=== PATIENT | female | born 1990 | race Caucasian/White ===

== ENCOUNTER 2021-09-27 08:22 | Emergency (ER) | payer OTHER ==
[2021-09-27 09:24] LABS: Urine Blood Negative (Negative); Urine Glucose Negative (Negative); Urine Protein Negative (Negative)
[2021-09-27 09:43] LABS: Absolute Lymphocytes (CBC) 1.3 K/uL (0.7-4.9); Hematocrit 39.1 % (36.0-45.0); Lymphocytes % 18.2 % (15.3-44.8); MCV 65.3 fL (80-100); MPV 9.7 fL (7.6-11.3); RBC Red Blood Cell Count 5.98 M/uL (3.86-4.86)
[2021-09-27 10:18] LABS: Anisocytosis SLIGHT; Blood Morphology Comment NOTED (NOT SEEN); Platelet Estimate ADEQ; White Blood Cell Scan OK (OK)
--- NOTE | 2021-09-27 10:43 | ER ---
Nurse's Notes [facility] Name: Chely Glass Age: 31 yrs Sex: Female : 1990 Arrival Date: 09/27/2021 Time: 08:23 Bed 4 Private MD: Cordell Rosen Diagnosis: Near Syncope;Orthostatic hypotension Presentation: 09/27 08:40 Chief complaint: Patient states: woke up this morning and felt like she was going to iw faint, felt nauseous and shaky. Coronavirus screen: At this time, the client does not indicate any symptoms associated with coronavirus-19. Ebola Screen: Patient negative for fever greater than or equal to 101.5 degrees Fahrenheit, and additional compatible Ebola Virus Disease symptoms Patient denies exposure to infectious person. Patient denies travel to an Ebola-affected area in the 21 days before illness onset. No symptoms or risks identified at this time. Initial Sepsis Screen: Does the patient meet any 2 criteria? No. Patient's initial sepsis screen is negative. Does the patient have a suspected source of infection? No. Patient's initial sepsis screen is negative. Risk Assessment: Do you want to hurt yourself or someone else? Patient reports no desire to harm self or others. Onset of symptoms was September 27, 2021. 08:40 Method Of Arrival: Ambulatory iw 08:40 Acuity: TED 3 iw Triage Assessment: 08:46 General: Appears in no apparent distress. comfortable, Behavior is cooperative, bp appropriate for age, anxious. Pain: Denies pain. EENT: No deficits noted. Neuro: Reports NEAR SYNCOPE. Cardiovascular: No deficits noted. Respiratory: No deficits noted. GI: No signs and/or symptoms were reported involving the gastrointestinal system. : No signs and/or symptoms were reported regarding the genitourinary system. Derm: No deficits noted. Musculoskeletal: No deficits noted. Historical: - Allergies: 11:13 No Known Allergies; bp - Home Meds: 08:41 None [Active]; iw - PMHx: 08:41 None; iw - Immunization history:: Adult Immunizations up to date. - Social history:: Smoking status: Patient denies any tobacco usage or history of. - Family history:: not pertinent. - Hospitalizations: : No recent hospitalization is reported. Screenin:48 Abuse screen: Denies threats or abuse. Denies injuries from another. Nutritional bp screening: No deficits noted. Tuberculosis screening: No symptoms or risk factors identified. Fall Risk None identified. Assessment: 08:48 General: SEE TRIAGE NOTE. bp 10:32 Reassessment: No changes from previously documented assessment. Patient and/or family bp updated on plan of care and expected duration. Pain level reassessed. 11:13 Reassessment: DC ON HOLD FOR IVF COMPLETION. bp 11:49 Reassessment: PT DC HOME AMBULATORY, DX WITH ORTHOSTATIC HYPOTENSION. bp Vital Signs: 08:46 BP 110 / 70; Pulse 74; Resp 16; Temp 98.7; Pulse Ox 100% ; bp 09:00 BP 115 / 68 Supine; Pulse 84; Resp 16; Pulse Ox 100% ; bp 09:05 BP 101 / 61; Pulse 85; Resp 16; Pulse Ox 100% ; bp 10:30 BP 98 / 55; Pulse 65; Resp 16; Pulse Ox 100% ; bp 11:49 BP 98 / 60; Pulse 77; Resp 16; Pulse Ox 100% ; bp ED Course: 08:23 Patient arrived in ED. am2 08:23 Cordell Rosen MD is Private Physician. am2 08:34 Marisel Valdez, RN is Primary Nurse. jg9 08:35 Alexis Villaseñor MD is Attending Physician. rn 08:41 Triage completed. iw 08:44 Sagar Madrigal, RN is Primary Nurse. bp 08:46 Arm band placed on. bp 08:48 Patient has correct armband on for positive identification. Bed in low position. Call bp light in reach. Side rails up X2. 09:15 Inserted saline lock: 20 gauge in left antecubital area, using aseptic technique. Blood bp collected. 11:49 No provider procedures requiring assistance completed. IV discontinued, intact, bp bleeding controlled, No redness/swelling at site. Pressure dressing applied. Administered Medications: 10:50 Drug: NS 0.9% 1000 ml Route: IV; Rate: 1000 ml; Site: left antecubital; bp 11:50 Follow up: IV Status: Completed infusion; IV Intake: 1000ml bp Medication: 08:48 VIS not applicable for this client. bp Intake: 11:50 IV: 1000ml; Total: 1000ml. bp Outcome: 10:42 Discharge ordered by . rn 11:49 Discharged to home ambulatory. bp 11:49 Condition: stable 11:49 Discharge instructions given to patient, Instructed on discharge instructions, follow up and referral plans. Demonstrated understanding of instructions, follow-up care. 11:50 Patient left the ED. bp Signatures: Danya Nunez RN JARON iw Alexis Villaseñor MD MD rn Moreno, Amanda am2 Peltier, Brian, RN RN bp aMrisel Valdez RN RN jg9
--- NOTE | 2021-09-27 10:44 | EDPHYS ---
Physician Documentation [facility] Name: Chely Glass Age: 31 yrs Sex: Female : 1990 Arrival Date: 09/27/2021 Time: 08:23 Bed 4 Private MD: Cordell Rosen ED Physician Alexis Villasñeor HPI: 09/27 09:42 This 31 yrs old Female presents to ER via Ambulatory with complaints of Near Syncope, rn Doesn't Feel Right. 09:42 The patient has experienced near-syncope. Onset: The symptoms/episode began/occurred rn this morning. Duration: This was a single episode. Associated injury: The patient did not suffer any apparent associated injury. Associated signs and symptoms: Pertinent positives: lightheadedness, Pertinent negatives: abdominal pain, chest pain, confusion, headache, not seizure, shortness of breath, weakness. Current symptoms: Currently, the patient is not experiencing any symptoms. The patient has experienced similar episodes in the past. The patient has not recently seen a physician. Pt reports near syncope, single episode, after walking dog this AM, felt lightheaded and dizzy, now resolved. States has passed out with similar symptoms in past but has been a while. No fever. NO cough/runny nose/focal neuro complaint. No chest pain or sob. Reports also has anxiety and thinks may have panicked, and lives alone so came in for evaluation. States felt better after laying down and eating fruit snacks.. Historical: - Allergies: 11:13 No Known Allergies; bp - Home Meds: 08:41 None [Active]; iw - PMHx: 08:41 None; iw - Immunization history:: Adult Immunizations up to date. - Social history:: Smoking status: Patient denies any tobacco usage or history of. - Family history:: not pertinent. - Hospitalizations: : No recent hospitalization is reported. ROS: 09:42 Constitutional: Negative for fever, chills, and weight loss, Eyes: Negative for injury, rn pain, redness, and discharge, Neck: Negative for injury, pain, and swelling, Cardiovascular: Negative for chest pain, palpitations, and edema, Respiratory: Negative for shortness of breath, cough, wheezing, and pleuritic chest pain, Abdomen/GI: Negative for abdominal pain, nausea, vomiting, diarrhea, and constipation, Back: Negative for injury and pain, : Negative for injury, bleeding, discharge, and swelling, MS/Extremity: Negative for injury and deformity, Skin: Negative for injury, rash, and discoloration, Neuro: Negative for headache, weakness, numbness, tingling, and seizure. Exam: 09:42 Constitutional: This is a well developed, well nourished patient who is awake, alert, rn and in no acute distress. Ambulatory to room without difficulty. Head/Face: Normocephalic, atraumatic. Eyes: Periorbital areas with no swelling, redness, or edema. ENT: MMM Neck: Trachea midline, no thyromegaly or masses palpated, and no cervical lymphadenopathy. Supple, full range of motion without nuchal rigidity, or vertebral point tenderness. No Meningismus. Cardiovascular: Regular rate and rhythm. No pulse deficits. Respiratory: No increased work of breathing, no retractions or nasal flaring. Abdomen/GI: soft, non-tender Skin: Warm, dry with normal turgor. Normal color with no rashes, no lesions, and no evidence of cellulitis. MS/ Extremity: Pulses equal, no cyanosis. Neurovascular intact. Full, normal range of motion. Equal circumference. Neuro: Awake and alert, GCS 15, oriented to person, place, time, and situation. Cranial nerves II-XII grossly intact. Motor strength 5/5 in all extremities. Sensory grossly intact. Cerebellar exam normal. Normal gait. Vital Signs: 08:46 BP 110 / 70; Pulse 74; Resp 16; Temp 98.7; Pulse Ox 100% ; bp 09:00 BP 115 / 68 Supine; Pulse 84; Resp 16; Pulse Ox 100% ; bp 09:05 BP 101 / 61; Pulse 85; Resp 16; Pulse Ox 100% ; bp 10:30 BP 98 / 55; Pulse 65; Resp 16; Pulse Ox 100% ; bp 11:49 BP 98 / 60; Pulse 77; Resp 16; Pulse Ox 100% ; bp MDM: 08:35 Patient medically screened. rn 10:40 Differential Diagnosis: cardiac arrhythmia, idiopathic syncope, vasovagal episode, rn orthostatic hypotension, anemia, iron deficiency, UTI, . Data reviewed: vital signs, nurses notes, lab test result(s), EKG, and as a result, I will discharge patient. Counseling: I had a detailed discussion with the patient and/or guardian regarding: the historical points, exam findings, and any diagnostic results supporting the discharge/admit diagnosis, lab results, the need for outpatient follow up, to return to the emergency department if symptoms worsen or persist or if there are any questions or concerns that arise at home. Response to treatment: the patient's symptoms have mildly improved after treatment, and as a result, I will discharge patient. Special discussion: I discussed with the patient/guardian in detail that at this point there is no indication for admission to the hospital. It is understood, however, that if the symptoms persist or worsen the patient needs to return immediately for re-evaluation. ED course: Pt with drop in BP after orthostatics completed, will hydrate and dc home given no other acute findings. Recommend pcp f/u and BP cuff to see if pattern emerges. . 09/27 08:48 Order name: CBC with Diff; Complete Time: 10:25 rn 09/27 08:48 Order name: Basic Metabolic Panel; Complete Time: 10:25 rn 09/27 09:24 Order name: Urine --Ancillary (enter results) em1 09/27 09:25 Order name: Urine Dipstick-Ancillary; Complete Time: 10:25 EDMS 09/27 10:19 Order name: CBC Smear Scan; Complete Time: 10:25 EDMS 09/27 08:48 Order name: IV Start; Complete Time: 09:24 rn 09/27 08:48 Order name: Urine Dipstick-Ancillary (obtain specimen); Complete Time: 09:24 rn 09/27 08:48 Order name: Urine Test (obtain specimen); Complete Time: 09:24 rn 09/27 08:48 Order name: Glucose Level; Complete Time: :24 rn 09/27 08:48 Order name: EKG; Complete Time: 08:48 rn 09/27 08:48 Order name: EKG - Nurse/Tech; Complete Time: :24 rn 09/27 08:48 Order name: Orthostatics; Complete Time: :24 rn 09/27 08:48 Order name: Cardiac monitoring; Complete Time: 09:24 rn Administered Medications: 10:50 Drug: NS 0.9% 1000 ml Route: IV; Rate: 1000 ml; Site: left antecubital; bp 11:50 Follow up: IV Status: Completed infusion; IV Intake: 1000ml bp Disposition Summary: 09/27/21 10:42 Discharge Ordered Location: Home rn Problem: new rn Symptoms: have improved rn Condition: Stable rn Diagnosis - Near Syncope rn - Orthostatic hypotension rn Followup: rn - With: Private Physician - When: As needed - Reason: Recheck today's complaints, Re-evaluation by your physician Discharge Instructions: - Discharge Summary Sheet rn - Near-Syncope rn - Orthostatic Hypotension rn Forms: - Medication Reconciliation Form rn - Thank You Letter rn - Antibiotic harness preparer - Prescription Opioid Use rn Signatures: Dispatcher [employer] Danya Meyers RN RN Alexis Boyd MD MD rn Peltier, Brian, RN RN bp
[2021-09-27] MEDS ORDERED: NA CHLORIDE 0.9% 1,000 ML ONE (11:00)
[2021-09-27 11:58] VITALS: TEMP 98.7; O2SAT 100
[2021-09-27 12:09] VITALS: BP 98/60
--- NOTE | 2021-09-29 13:51 | EKG ---
Test Date: 2021-09-27 Test Time: 08:54:43 [employer]eneer Department Manager: BP MEASUREMENT RESULTS: Intervals: Rate: 73 TX: 144 QRSD: 74 QT: 404 QTc: 445 [place]: P: 61 TX: 144 QRS: 85 T: 55 INTERPRETIVE STATEMENTS: Normal sinus rhythm Normal ECG No previous ECG available for comparison Electronically Signed On 09-29-21 13:47:37 CDT by Ben Rivero
== END 2021-09-27 11:50 | disposition home or self-care (01) ==
LOC: ER 08:22
DX: I95.1 Orthostatic hypotension (principal)
CPT/HCPCS: 93005; 85025; 80048; 36415; 81025; 81003; J7030; 96360; 99284